=== PATIENT | female | born 1935 | race Caucasian/White ===

== ENCOUNTER → 2016-07-27 | Outpatient (CLI) | payer MEDICARE, OTHER ==
[~2016-07-27] MED LIST: LEVO.075 PO; LEVO75TA3 PO; PANT20TA2 PO; SIMV20TA PO; VALT500T PO
[2016-07-27 11:57] LABS: AUTOMATED NEUTROPHIL # 4.8 TH/MM3 (1.8-7.7); BASOPHIL # 0.1 TH/MM3 (0-0.2); BASOPHIL % 0.9 % (0.0-2.0); EOSINOPHIL # 0.2 TH/MM3 (0-0.4); EOSINOPHIL % 2.1 % (0.0-4.0); HEMATOCRIT 45.7 % (35.0-46.0); HEMO FLAGS DIFF FINAL; LYMPH % 30.3 % (9.0-44.0); LYMPHOCYTE # 2.6 TH/MM3 (1.0-4.8); MEAN CORPUSCULAR HEMOGLOBIN 32.2 PG (27.0-34.0); MEAN CORPUSCULAR HGB CONC 34.7 % (32.0-36.0); MONO % 10.6 % (0.0-8.0); NEUT % 56.1 % (16.0-70.0); PLATELET COUNT 243 TH/MM3 (150-450); RED BLOOD COUNT 4.92 MIL/MM3 (4.00-5.30); RED CELL DISTRIBUTION WIDTH 12.9 % (11.6-17.2); WHITE BLOOD COUNT 8.5 TH/MM3 (4.0-11.0)
== END ==
LOC: CPRE 11:21
PROVIDERS: ATTEND Ophthalmology
DX: Z01.812 Encounter for preprocedural laboratory examination (principal); H26.9 Unspecified cataract
CPT/HCPCS: 36415; 85025

== ENCOUNTER → 2016-08-03 | Day surgery (SDC) | payer MEDICARE, OTHER ==
--- NOTE | 2016-07-27 18:51 | MH ---
cc: TESSIE DOWNEY DATE OF ADMISSION 08/03/2016 ADMISSION DIAGNOSIS Cataract right eye. HISTORY OF PRESENT ILLNESS This 81-year-old white female is coming through [facility] for the purpose of a lens extraction of the right eye with intraocular lens implant under local anesthesia. She had a similar procedure in the left eye recently and has done well postoperatively and now is requesting cataract surgery for her right eye. She has noted decreasing acuity in that eye interfering with her daily activities. The visual acuity best correction in room light is 20/50 +2 in the right eye and 20/25 -2 in the left. PAST MEDICAL HISTORY 1. The patient has a history of a nodule that is benign in her stomach. 2. She has a history of herpes simplex. 3. Osteopenia. 4. Cholesterol problems. 5. Broken right foot. 6. And hypothyroidism. PAST SURGICAL HISTORY Surgical history includes: 1. Thyroidectomy. 2. Tubal ligation. 3. Biopsy of the stomach nodule. 4. Right rotator cuff surgery. 5. Basal cell carcinoma of the nose. 6. ALK of both eyes in 1993, that is automated lamellar keratoplasty. MEDICATIONS Daily medications include: 1. 81 mg of aspirin. 2. Fish oil. 3. Valtrex. 4. Simvastatin. 5. Pantoprazole. 6. Areds 2 vitamin. 7. Levothyroxine. ALLERGIES NO KNOWN ALLERGIES. SOCIAL HISTORY Does not smoke and has wine or beer two to three times a week. FAMILY HISTORY Positive for mother with cataract and half brother with glaucoma. REVIEW OF SYSTEMS HEAD: Patient denies severe headaches, dizziness or recent head injury. EARS: Patient denies hearing loss, ear pain, discharge or ringing in the ears. NOSE: Patient denies nasal discharge, obstruction or frequent colds. MOUTH AND THROAT: Patient denies soreness of the mouth or tongue, bleeding gums, trouble swallowing, changes in voice or sore throat. NECK: Patient denies neck pain or swelling, limitation of neck movement or neck injury. CARDIOPULMONARY SYSTEM: Patient denies shortness of breath, orthopnea, chronic cough, sputum production, hemoptysis, chest pain, wheezing, palpitations or light-headedness. GI SYSTEM: Patient denies poor appetite, nausea, vomiting, abdominal pain, ulcers, hemorrhoids or change in bowel habits. SYSTEM: The patient denies urinary frequency, dysuria, change in urine color. NERVOUS SYSTEM: Patient denies convulsions, vertigo, stroke, numbness or weakness. PHYSICAL EXAMINATION VITAL SIGNS: Blood pressure 100/68, pulse 84, respirations 20. HEAD: Normocephalic, atraumatic. NOSE: Without rhinorrhea. THROAT: Clear. NECK: Supple. CHEST: Clear. HEART: Regular rhythm. ABDOMEN: Without tenderness. EXTREMITIES: Without edema. NEUROLOGICAL: Within normal limits. MENTAL STATUS: Within normal limits. EYE EXAMINATION: The patient's best corrected visual acuity is 20/50 +2 in the right eye in room light and 20/25 -2 in the left eye. Visual garcia are full to confrontation testing. Extraocular muscle exam reveals full versions with orthophoria at distance and near. Pupils are 3 mm equal, round, reactive to light without afferent defect. Anterior segment examination reveals nuclear sclerotic and posterior cortical cataract change in the right eye and a posterior chamber intraocular lens in the left. Intraocular pressure is 14 in each eye by applanation tonometry. Dilated fundus exam revealed sharp disks with cup-to-disk ratio 0.3 bilaterally. There is peripapillary atrophy present bilaterally. There is some granularity in the macula of each eye. A posterior vitreous detachment is present bilaterally. There are floaters in the vitreous bilaterally. 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 IMPRESSION 1. Cataract right eye. 2. Pseudophakia left eye. 3. Posterior vitreous detachment both eyes with floaters. 4. Status post automated lamellar keratoplasty both eyes. 5. PLAN Lens extraction of the right eye with intraocular lens implant under local anesthesia through [facility]. The patient has been cleared medically. She has been counseled as to the risks, benefits and alternatives and elected to proceed. I feel that cataract surgery will improve the quality of life and activities of daily living in this patient. MD AZ Baldwin/KESHAWN /5:00 PM /6:28 PM
[~2016-08-03] VITALS: Ht 167.6 cm; Wt 62.0 kg
[~2016-08-03] MED LIST changes: +ACETYLCHOLINE CHL OPHT SOLN 1:100 2 ML VIAL IO ONE; +EPINEPHrine HCL (1:1000) 1 MG/ML VIAL ONE; +HYALURONIDASE/LIDOCAINE/BUPIVACAINE 4.5 ML SYR RIGHT EYE ONE; +HYALURONIDASE/LIDOCAINE/BUPIVACAINE 6 ML SYR RIGHT EYE ONE; +PILOCARPINE HCL 2% OPHT SOLN 15 ML BTL RIGHT EYE ONE; +PROPARACAINE HCL 0.5% OPHT SOLN 15 ML BTL RIGHT EYE ONE; +PROPOFOL 200 MG/20 ML AMP ONE; +SODIUM CHLORID 0.9% 500 ML INJ 500 ML ONE; +TOBRAMYCIN/DEXAMETHASONE OPTH OINT 3.5 GM TUBE RIGHT EYE ONE; +VISCOAT OPHT IRRIG SOLN 0.75 ML SYRINGE RIGHT EYE ONE
[2016-08-03 07:30] VITALS: BP 136/78; PULSE 71; RESP 16; TEMP 97.8; O2SAT 100
[2016-08-03] MEDS: CYCLOPENTOLATE HCL 1% OPHT SOLN 2 ML BTL RIGHT EYE SCH ×4 (07:35→07:44)
[2016-08-03] MEDS: GATIFLOXACIN 0.5% OPHT SOLN 2.5 ML BTL RIGHT EYE SCH ×4 (07:35→07:44)
[2016-08-03] MEDS: TROPICAMIDE 1% OPHT SOLN 15 ML BTL RIGHT EYE SCH ×4 (07:35→07:44)
[2016-08-03] MEDS: PHENYLEPHRINE HCL 2.5% OPTH SOLN 2 ML BTL RIGHT EYE SCH ×4 (07:35→07:44)
[2016-08-03] MEDS: DICLOFENAC SOD 0.1% OPHT SOLN 2.5 ML BTL RIGHT EYE SCH ×4 (07:35→07:44)
[2016-08-03 07:45] VITALS: PULSE 71
[2016-08-03 08:20] VITALS: PULSE 68
[2016-08-03 10:45] VITALS: BP 102/60; PULSE 70; RESP 16; TEMP 98.3; O2SAT 99
--- NOTE | 2016-08-05 21:21 | MP ---
cc: TESSIE ROCK DATE OF SURGERY: 08/03/2016 PREOPERATIVE DIAGNOSIS: Cataract, right eye. POSTOPERATIVE DIAGNOSIS: Cataract, right eye. OPERATION: Extracapsular cataract extraction with posterior chamber intraocular lens implant by phacoemulsification, right eye. SURGEON: Tessie Rock M.D. ANESTHESIA: Local. COMPLICATIONS: None. INDICATIONS: See history and physical previously dictated. OPERATIVE PROCEDURE: The patient had adequate retrobulbar and eyelid blocks administered in the holding area and was brought to the operating room. The right eye was prepped and draped in the usual sterile ophthalmic manner. A lid speculum was inserted in the right eye. A 4-0 silk bridle suture was placed through the conjunctiva near the superior rectus muscle and it was tagged to the drape. A fornix-based conjunctival flap was prepared spanning approximately 5 mm in width. Hemostasis was obtained with wet-field cautery. A 3.5 mm groove was made 1 mm from the limbus and dissected up to the limbus in the form of a scleral pocket incision. A stab incision was then made at the 2 o'clock position. Viscoelastic was injected into the anterior chamber. The anterior chamber was entered with a 2.75 mm keratome through the scleral pocket incision. A 360 degree continuous curvilinear capsulorrhexis was then performed. Hydrodissection was utilized to divide the nucleus into inner and outer components and to separate the cortex from the capsule. Phacoemulsification was then utilized to remove the nucleus. The outer nuclear layer was removed with irrigation and aspiration and short bursts of ultrasound as necessary. The cortex was removed with the irrigation/aspiration handpiece. The posterior capsule was polished with the capsule polisher. Viscoelastic was injected into the capsular bag. The intraocular lens was inspected and found to be in good condition. The lens utilized was an Armando, model number SA 60AT with a power of +12.5 diopters. The lens was inserted into the capsular bag. The viscoelastic in the anterior chamber was then removed with the irrigation-aspiration handpiece. Viscoelastic was also removed from beneath the intraocular lens. The anterior chamber was filled with Miochol-E through the stab incision and pressurized. The wound was checked for leaks at this pressure and normalized pressure and there were none. The 4-0 bridle suture was removed. The conjunctival flap was brought down over the wound and secured with cautery. Pilocarpine 2% eye drops were instilled topically. The lid speculum was removed. TobraDex ophthalmic ointment was applied. The eye was double patched and shielded. The patient tolerated the procedure well and left the Operating Room in satisfactory condition. MD AZ Baldwin/VILLA /10:21 AM /8:49 PM
== END | disposition home or self-care (01) ==
LOC: CSDC 07:05
PROVIDERS: ATTEND Ophthalmology
DX: H25.811 Combined forms of age-related cataract, right eye (principal); E03.9 Hypothyroidism, unspecified; M85.80 Other specified disorders of bone density and structure, unspecified site; Z83.518 Family history of other specified eye disorder; Z79.82 Long term (current) use of aspirin
CPT/HCPCS: J0171; J7040; V2632